=== PATIENT | male | born 1950 | race Caucasian/White ===

== ENCOUNTER 2025-03-17 08:52 | Day surgery (SDC) | payer OTHER, SELFPAY ==
[2025-03-17] VITALS (9 sets, daily range): BP systolic 129–178; BP diastolic 63–92; BMI 38.8
[2025-03-17 09:35] LABS: Hematocrit 40.3 % (39.0-52.0); Hemoglobin 13.9 g/dL (13.0-18.0); Mean Corp Hgb Conc. 34.5 g/dL (33.0-37.0); Mean Corpuscular Volume 87.0 fL (80.0-94.0); Platelet Count 235 10^3/uL (130-400); Red Cell Dist. Width 13.2 % (11.5-14.5)
[2025-03-17 09:55] LABS: Blood Urea Nitrogen 19 mg/dl (9-20); Calcium 10.2 mg/dl (8.4-10.2); Carbon Dioxide 26 mmol/L (22-30); Chloride 105 mmol/L (98-107); Estimated Creatinine Clearance 85 ml/min; Glucose 100 mg/dl (70-99); Potassium 4.5 mmol/L (3.5-5.1); Sodium 139 mmol/L (135-145); eGFR > 60.00
[2025-03-17 13:19] LABS: ACT-LR - POC 218 Seconds (116-155)
[2025-03-17] MEDS: LASIX 40 MG IV (15:42)
--- NOTE | 2025-03-17 16:32 | ITS.CL.CATH ---
[employer] - Catheterization
Cardiac Catheterization
Procedure Report:
LEFT AND RIGHT HEART CATHETERIZATION
Date of Procedure: March 17, 2025
Referring: Luis Penny MD
PROCEDURES:
1. Left heart catheterization, coronary angiogram.
2. Moderate sedation.
3. Right heart catheterization
INDICATION: Ongoing dyspnea on exertion in the setting of possible moderate to severe aortic stenosis by most recent echocardiogram.
ACCESS: We initially attempted left radial artery access but could not successfully advance the wire and therefore this access was aborted. Right common femoral arterial access was obtained with 6 [place] sheath, using ultrasound guidance and a
micropuncture sheath. Right common femoral venous access was also obtained with 6 [place] sheath, using ultrasound guidance and a micropuncture kit
HEMODYNAMICS : (mmHg)
RA (m) : 15
RV (s/d,m) : 42/15, 24
PA (s/d, m) : 42/25, 30.7
PCWP (m) :25
PA saturation: 63.6% on room air
AO saturation: 90.1 percent on room air
Cardiac Output :5.73 L/min by Pool calculation
Cardiac Index : 2.59 L/min/m-2 by Pool calculation
Systemic vascular resistance: 1382 dsc^(-5)
Pulmonary vascular resistance: 1.57 rose unit
AO (s/d) : 156/80
LVEDP : 16
Mean transaortic gradient is 24 mmHg with aortic valve area 1.3 cm� consistent with moderate aortic stenosis.
CORONARY FINDINGS
Dominance: Right
Left Main Trunk (LMT): Large caliber vessel that gives rise to the LAD and LCx branches and is free of angiographic disease.
Left Anterior Descending Artery (LAD): Large caliber vessel that gives off 2 major diagonal branches as it courses along the anterior inter-ventricular groove before wrapping around the cardiac apex. The LAD and its branches are free of
angiographic disease.
Left Circumflex Artery (LCx): Large caliber vessel that gives off 2 major obtuse marginal (OM) branches as it courses along the atrio-ventricular (AV) groove. The LCx and its branches are free of angiographic disease.
Right Coronary Artery (RCA): Large caliber dominant vessel with a high anterior takeoff engaged using a 6 [place] AL-1 diagnostic catheter that gives rise to the posterior descending artery (RPDA) and postero-lateral ventricular (RPLV) branches
distally. There is mild diffuse atherosclerotic plaque.
SEDATION: 47 minutes of procedural sedation was utilized. IV Midazolam and IV Fentanyl were administered. An independent medical front desk specialist was present to assist with and help manage the patient's level of consciousness and physiologic status.
Closure Device: 6 [place] Angio-Seal was utilized over the right common femoral arterial access. Manual pressure was held over the right common femoral venous access site.
CONCLUSIONS
1. No obstructive coronary artery disease.
2. Mean transaortic gradient is 24 mmHg with aortic valve area 1.3 cm� consistent with moderate aortic stenosis.
3. Significantly elevated right and left-sided filling pressures with normal cardiac output.
RECOMMENDATIONS
1. Wean radial band per protocol. Monitor right hand perfusion and for bleeding from the radial site following removal of the vascular-band following trans-radial access.
2. Continue aggressive medical therapy and risk factor modification for secondary CAD prevention.
3. Hydrate with normal saline to mitigate the risk of contrast-induced acute kidney injury.
4. Follow-up with Dr. Penny.
5. Ongoing surveillance of moderate aortic stenosis.
Orin Shearer MD, [facility], [facility]
Copy to: Luis Penny MD
== END 2025-03-17 13:38 | disposition home or self-care (01) ==
LOC: CATH 08:52
PROVIDERS: ATTENDING PHYSICIAN Internal Medicine Interventional Cardiology; FAMILY PHYSICIAN Family Medicine; OTHER PHYSICIAN Internal Medicine Cardiovascular Disease
DX: R06.09 Other forms of dyspnea (principal); I35.0 Nonrheumatic aortic (valve) stenosis; I25.10 Atherosclerotic heart disease of native coronary artery without angina pectoris; Z79.82 Long term (current) use of aspirin; Z79.02 Long term (current) use of antithrombotics/antiplatelets; Z79.890 Hormone replacement therapy; Z79.899 Other long term (current) drug therapy
CPT/HCPCS: 80048; 85027; 85347; 93460; 99152; 99153; C1760; C1769; C1894; Q9967